=== PATIENT | female | born 1975 | race Caucasian/White ===

== ENCOUNTER → 2025-06-14 | Outpatient (CLI) | payer SELFPAY ==
[2025-06-15 14:19] LABS: Stool Occult Bld Immuno 1 Negative (NEGATIVE)
== END ==
LOC: LAB 11:57 → LAB SHORT 11:57
PROVIDERS: Student in an Organized Health Care Education/Training Program
DX: Z12.11 Encounter for screening for malignant neoplasm of colon (principal)
CPT/HCPCS: G0328

== ENCOUNTER → 2025-07-23 | Outpatient (CLI) | payer SELFPAY ==
[2025-07-24 08:58] LABS: Candida Group, PCR NOT DETECTED (NOT DETECT); Candida glabrata-krusei, PCR NOT DETECTED (NOT DETECT)
[2025-07-24 09:53] LABS: Bacterial Vaginosis PCR Positive (NEGATIVE)
== END ==
LOC: LAB 18:27 → LAB SHORT 18:27
PROVIDERS: Registered Nurse
DX: B37.31 Acute candidiasis of vulva and vagina (principal); N94.89 Other specified conditions associated with female genital organs and menstrual cycle
CPT/HCPCS: 81515

== ENCOUNTER 2025-08-05 17:20 | Emergency (ER) | payer SELFPAY ==
[~2025-08-05] VITALS: Ht 152.4 cm; Wt 77.1 kg
[2025-08-05] MEDS ORDERED: DiphenhydrAMINE HCl 50 MG/ML 1ML Vial IV ONE (17:55)
[2025-08-05] MEDS ORDERED: FAMO20 PO (20:47)
[2025-08-05] MEDS ORDERED: BENADRYL25 M1 PO (20:47)
[2025-08-05] MEDS ORDERED: PRED20 PO (20:47)
== END 2025-08-05 21:00 | disposition home or self-care (01) ==
LOC: ER 17:20
DX: T78.19XA Other adverse food reactions, not elsewhere classified, initial encounter (principal); R22.0 Localized swelling, mass and lump, head; R21 Rash and other nonspecific skin eruption; E11.9 Type 2 diabetes mellitus without complications; K21.9 Gastro-esophageal reflux disease without esophagitis; Z88.6 Allergy status to analgesic agent; Z88.5 Allergy status to narcotic agent; Z79.52 Long term (current) use of systemic steroids; Z79.899 Other long term (current) drug therapy; Z59.89 Other problems related to housing and economic circumstances; X58.XXXA Exposure to other specified factors, initial encounter
CPT/HCPCS: 96374; 96375; 99282-25; J1200; J2919